=== PATIENT | male | born 1955 | race African-American/Black ===

== ENCOUNTER 2021-07-22 18:41 | Inpatient (IN) | payer OTHER ==
[2021-07-22] MEDS ORDERED: FOLIC ACID INJECTION - 1 MG, THIAMINE HCL 100 MG, MULTIVIT INJECTION ADULT 10 ML in SOD... IVPB ONE (19:52)
[2021-07-22 21:42] LABS: BASO % 0.7 % (0-2.0); EOS % 0.9 % (0-4.5); HEMATOCRIT 40.7 % (35.4-49); HEMOGLOBIN 13.2 GM/dL (11.7-16.9); LYMPH % 24.8 % (8-40); MCH 26.8 pg (25.7-33.7); MCHC 32.4 g/dl (32.0-35.9); MEAN CELL VOLUME 82.6 fl (80-96); MEAN PLT VOLUME 7.2 fl (7.5-11.1); MONO % 8.8 % (3.8-10.2); NEUT % 64.8 % (42.8-82.8); PLATELET COUNT 387 10^3/uL (134-434); RBC 4.93 M/mm3 (4.00-5.60); WHITE BLOOD COUNT 8.3 K/mm3 (4.0-10.0)
[2021-07-22] MEDS ORDERED: MAGNESIUM SULF 50% (8.12 MEQ/2 ML-1 GM VIAL) IVPB ONE (22:03)
[2021-07-22 22:04] LABS: ALBUMIN 3.2 g/dl (3.4-5.0); CALCIUM 9.2 mg/dL (8.5-10.1)
[2021-07-22 22:05] LABS: BLOOD UREA NITROGEN 6.5 mg/dL (7-18)
[2021-07-22 22:08] LABS: CREATININE 0.9 mg/dL (0.55-1.3)
[2021-07-22 22:09] LABS: TOT PROT 7.3 g/dl (6.4-8.2)
[2021-07-22 22:14] LABS: BILIRUBIN,TOTAL 0.3 mg/dL (0.2-1)
[2021-07-22] MEDS ORDERED: MAGNESIUM SULFATE IN WATER 2 GM/50 ML IVPB IVPB ONE (22:19)
[2021-07-22] MEDS ORDERED: POTASSIUM CHLORIDE TABS 20 MEQ TABLET.ER (FP) PO ONE ×2 (22:20→22:38)
[2021-07-22 22:49] LABS: MAGNESIUM 2.1 mg/dL (1.8-2.4)
[2021-07-22 22:53] LABS: PHOSPHOROUS 3.8 mg/dL (2.5-4.9)
[2021-07-22 23:00] LABS: PH,URINE 5.5 (5.0-8.0); URINE APPEARANCE CLEAR; URINE BILIRUBIN NEGATIVE (NEGATIVE); URINE COLOR YELLOW; URINE GLUCOSE (UA) NEGATIVE (NEGATIVE); URINE KETONE NEGATIVE (NEGATIVE); URINE LEUK ESTERASE NEGATIVE (NEGATIVE); URINE NITRITE NEGATIVE (NEGATIVE); URINE PROTEIN NEGATIVE (NEGATIVE); URINE UROBILINOGEN 0.2 mg/dL (0.2-1.0)
[2021-07-23] MEDS ORDERED: KCL 10 MEQ IVPB 10 MEQ/100 ML INFUS.BAG IVPB ONE ×2 (01:23→02:31)
[2021-07-23] MEDS: KCL 10 MEQ IVPB 10 MEQ/100 ML INFUS.BAG IVPB SCH ×2 (01:27→02:30)
[2021-07-23] MEDS ORDERED: HALOPERIDOL LACTATE 5 MG/ML IM ONE (03:18)
[2021-07-23] MEDS ORDERED: HALOPERIDOL LACTATE 5 MG/ML ONE (03:24)
[2021-07-23] MEDS ORDERED: amLODIPine BESYLATE 5 MG TABLET (FP) ONE (06:17)
[2021-07-23] MEDS ORDERED: HYDROCHLOROTHIAZIDE 25 MG TABLET (FP) ONE (06:17)
[2021-07-23] MEDS: amLODIPine BESYLATE 5 MG TABLET (FP) PO SCH (06:27)
[2021-07-23] MEDS: HYDROCHLOROTHIAZIDE 12.5 MG CAPSULE (FP) PO SCH (06:27)
[2021-07-23 09:17] VITALS: BMI 28.6
[2021-07-23] MEDS ORDERED: POTASSIUM CHLORIDE TABS 20 MEQ TABLET.ER (FP) PO ONE (10:00)
[2021-07-23] MEDS: ENOXAPARIN NA (PORCINE) 40 MG/0.4 ML DISP.SYRIN SQ SCH (11:26)
[2021-07-23] MEDS ORDERED: LORazepam 2 MG/ML SDV VIAL IVPUSH ONE (14:00)
[2021-07-23] MEDS: MINERAL OIL/PET HY-PHL TOPICAL OINTMENT 454 GM JAR TP SCH (15:34)
[2021-07-23] MEDS ORDERED: ATORVASTATIN CA 80 MG TABLET (FP) PO ONE (16:03)
[2021-07-23] MEDS: ASPIRIN 81 MG CHEWABLE TABLETS PO SCH (17:50)
[2021-07-23] MEDS: LISINOPRIL 10 MG TABLET PO SCH (22:05)
[2021-07-24] MEDS: MINERAL OIL/PET HY-PHL TOPICAL OINTMENT 454 GM JAR TP SCH ×3 (02:40→21:02)
[2021-07-24 07:43] LABS: BASO % 0.8 % (0-2.0); EOS % 1.5 % (0-4.5); HEMATOCRIT 39.6 % (35.4-49); HEMOGLOBIN 13.1 GM/dL (11.7-16.9); MCH 27.4 pg (25.7-33.7); MCHC 33.2 g/dl (32.0-35.9); MEAN CELL VOLUME 82.4 fl (80-96); MEAN PLT VOLUME 6.7 fl (7.5-11.1); MONO % 9.6 % (3.8-10.2); NEUT % 56.1 % (42.8-82.8); PLATELET COUNT 419 10^3/uL (134-434); WHITE BLOOD COUNT 7.6 K/mm3 (4.0-10.0)
[2021-07-24] MEDS: HYDROCHLOROTHIAZIDE 12.5 MG CAPSULE (FP) PO SCH (09:14)
[2021-07-24] MEDS: ASPIRIN 81 MG CHEWABLE TABLETS PO SCH (09:14)
[2021-07-24] MEDS: amLODIPine BESYLATE 5 MG TABLET (FP) PO SCH (09:14)
[2021-07-24 09:17] LABS: ALBUMIN 3.2 g/dl (3.4-5.0); BLOOD UREA NITROGEN 8.6 mg/dL (7-18)
[2021-07-24 09:18] LABS: CALCIUM 8.4 mg/dL (8.5-10.1); MAGNESIUM 2.2 mg/dL (1.8-2.4)
[2021-07-24 09:21] LABS: BILIRUBIN,TOTAL 0.9 mg/dL (0.2-1); TOT PROT 7.1 g/dl (6.4-8.2)
[2021-07-24 09:23] LABS: CREATININE 0.9 mg/dL (0.55-1.3)
[2021-07-24] MEDS: CYANOCOBALAMIN (VITAMIN B-12) 1000 MCG/1 ML VIAL IM SCH (10:41)
[2021-07-24] MEDS ORDERED: MELATONIN 5 MG TABLETS PO ONE (20:18)
[2021-07-24] MEDS: LISINOPRIL 10 MG TABLET PO SCH (21:02)
[2021-07-25] MEDS: amLODIPine BESYLATE 5 MG TABLET (FP) PO SCH ×2 (09:41→14:49)
[2021-07-25] MEDS: ENOXAPARIN NA (PORCINE) 40 MG/0.4 ML DISP.SYRIN SQ SCH (09:41)
[2021-07-25] MEDS: HYDROCHLOROTHIAZIDE 12.5 MG CAPSULE (FP) PO SCH (09:41)
[2021-07-25] MEDS: ASPIRIN 81 MG CHEWABLE TABLETS PO SCH ×2 (09:41→14:49)
[2021-07-25] MEDS: CYANOCOBALAMIN (VITAMIN B-12) 1000 MCG/1 ML VIAL IM SCH (09:42)
[2021-07-25] MEDS: TRIHEXYPHENIDYL HCL 2 MG TABLET PO SCH (09:43)
[2021-07-25] MEDS: MINERAL OIL/PET HY-PHL TOPICAL OINTMENT 454 GM JAR TP SCH ×2 (09:44→23:47)
[2021-07-25] MEDS: ATORVASTATIN CA 40 MG TABLET (FP) PO SCH (23:46)
[2021-07-25] MEDS: LISINOPRIL 20 MG TABLET PO SCH (23:46)
[2021-07-26 09:00] LABS: HEMATOCRIT 40.7 % (35.4-49); HEMOGLOBIN 13.5 GM/dL (11.7-16.9); MCH 27.3 pg (25.7-33.7); MCHC 33.2 g/dl (32.0-35.9); MEAN CELL VOLUME 82.2 fl (80-96); MEAN PLT VOLUME 6.9 fl (7.5-11.1); PLATELET COUNT 471 10^3/uL (134-434); RBC 4.95 M/mm3 (4.00-5.60); RDW 13.2 % (11.9-15.9); WHITE BLOOD COUNT 6.1 K/mm3 (4.0-10.0)
[2021-07-26 10:07] LABS: CALCIUM 9.2 mg/dL (8.5-10.1)
[2021-07-26 10:08] LABS: BLOOD UREA NITROGEN 10.5 mg/dL (7-18)
[2021-07-26 10:11] LABS: CREATININE 0.9 mg/dL (0.55-1.3)
[2021-07-26] MEDS: MINERAL OIL/PET HY-PHL TOPICAL OINTMENT 454 GM JAR TP SCH ×2 (12:44→22:33)
[2021-07-26] MEDS: ENOXAPARIN NA (PORCINE) 40 MG/0.4 ML DISP.SYRIN SQ SCH (12:44)
[2021-07-26] MEDS: ASPIRIN 81 MG CHEWABLE TABLETS PO SCH (12:45)
[2021-07-26] MEDS: TRIHEXYPHENIDYL HCL 2 MG TABLET PO SCH (12:45)
[2021-07-26] MEDS: CYANOCOBALAMIN (VITAMIN B-12) 1000 MCG/1 ML VIAL IM SCH (12:46)
[2021-07-26] MEDS: amLODIPine BESYLATE 5 MG TABLET (FP) PO SCH (12:46)
[2021-07-26] MEDS: ATORVASTATIN CA 40 MG TABLET (FP) PO SCH (22:32)
[2021-07-26] MEDS: LISINOPRIL 20 MG TABLET PO SCH (22:33)
[2021-07-27 09:24] LABS: HEMATOCRIT 45.8 % (35.4-49); HEMOGLOBIN 15.1 GM/dL (11.7-16.9); MCH 27.5 pg (25.7-33.7); MEAN CELL VOLUME 83.2 fl (80-96); MEAN PLT VOLUME 6.9 fl (7.5-11.1); PLATELET COUNT 440 10^3/uL (134-434); RDW 13.3 % (11.9-15.9); WHITE BLOOD COUNT 5.6 K/mm3 (4.0-10.0)
[2021-07-27 09:33] LABS: BASO % 1.1 % (0-2.0); EOS % 1.4 % (0-4.5); LYMPH % 43.2 % (8-40); MONO % 11.6 % (3.8-10.2); NEUT % 42.7 % (42.8-82.8)
[2021-07-27] MEDS: MINERAL OIL/PET HY-PHL TOPICAL OINTMENT 454 GM JAR TP SCH ×2 (09:54→22:45)
[2021-07-27] MEDS: TRIHEXYPHENIDYL HCL 2 MG TABLET PO SCH (09:54)
[2021-07-27] MEDS: ENOXAPARIN NA (PORCINE) 40 MG/0.4 ML DISP.SYRIN SQ SCH (09:55)
[2021-07-27] MEDS: ASPIRIN 81 MG CHEWABLE TABLETS PO SCH (09:55)
[2021-07-27] MEDS: CYANOCOBALAMIN (VITAMIN B-12) 1000 MCG/1 ML VIAL IM SCH (09:55)
[2021-07-27] MEDS: amLODIPine BESYLATE 5 MG TABLET (FP) PO SCH (09:55)
[2021-07-27] MEDS: ATORVASTATIN CA 40 MG TABLET (FP) PO SCH (22:45)
[2021-07-27] MEDS: LISINOPRIL 20 MG TABLET PO SCH (22:53)
[2021-07-28] MEDS ORDERED: MELATONIN 5 MG TABLETS PO PRN (03:04)
[2021-07-28 08:54] LABS: EOS % 3.3 % (0-4.5); HEMATOCRIT 41.2 % (35.4-49); HEMOGLOBIN 13.5 GM/dL (11.7-16.9); LYMPH % 44.1 % (8-40); MCH 27.1 pg (25.7-33.7); MCHC 32.8 g/dl (32.0-35.9); MEAN CELL VOLUME 82.7 fl (80-96); MEAN PLT VOLUME 6.7 fl (7.5-11.1); MONO % 10.5 % (3.8-10.2); NEUT % 41.1 % (42.8-82.8); PLATELET COUNT 446 10^3/uL (134-434); RBC 4.98 M/mm3 (4.00-5.60); RDW 13.3 % (11.9-15.9); WHITE BLOOD COUNT 4.4 K/mm3 (4.0-10.0)
[2021-07-28 09:14] LABS: BLOOD UREA NITROGEN 11.2 mg/dL (7-18)
[2021-07-28 09:17] LABS: CREATININE 0.8 mg/dL (0.55-1.3)
[2021-07-28] MEDS: CYANOCOBALAMIN (VITAMIN B-12) 1000 MCG/1 ML VIAL IM SCH (10:38)
[2021-07-28] MEDS: ENOXAPARIN NA (PORCINE) 40 MG/0.4 ML DISP.SYRIN SQ SCH (10:38)
[2021-07-28] MEDS: TRIHEXYPHENIDYL HCL 2 MG TABLET PO SCH (10:38)
[2021-07-28] MEDS: ASPIRIN 81 MG CHEWABLE TABLETS PO SCH (10:38)
[2021-07-28] MEDS: amLODIPine BESYLATE 5 MG TABLET (FP) PO SCH (10:38)
[2021-07-28] MEDS: MINERAL OIL/PET HY-PHL TOPICAL OINTMENT 454 GM JAR TP SCH ×2 (10:40→21:47)
[2021-07-28] MEDS ORDERED: MINERAL OIL ENEMA 133 ML ENEMA PR ONE (15:56)
[2021-07-28] MEDS: POLYETHYLENE GLYCOL (HEALTHYLAX) 3350 17 GM PACKET PO SCH ×2 (16:06→21:47)
[2021-07-28] MEDS: DOCUSATE SODIUM 100 MG CAPSULE (FP) PO SCH ×2 (16:06→21:47)
[2021-07-28] MEDS: ATORVASTATIN CA 40 MG TABLET (FP) PO SCH (21:47)
[2021-07-28] MEDS: SENNOSIDES 8.6MG TABLET (FP) PO SCH (21:47)
[2021-07-28] MEDS: LISINOPRIL 20 MG TABLET PO SCH (21:48)
[2021-07-29] MEDS: DOCUSATE SODIUM 100 MG CAPSULE (FP) PO SCH ×3 (06:23→21:48)
[2021-07-29] MEDS: POLYETHYLENE GLYCOL (HEALTHYLAX) 3350 17 GM PACKET PO SCH ×2 (09:30→21:48)
[2021-07-29] MEDS: MINERAL OIL/PET HY-PHL TOPICAL OINTMENT 454 GM JAR TP SCH ×2 (09:30→21:56)
[2021-07-29] MEDS: ENOXAPARIN NA (PORCINE) 40 MG/0.4 ML DISP.SYRIN SQ SCH (09:30)
[2021-07-29] MEDS: TRIHEXYPHENIDYL HCL 2 MG TABLET PO SCH (09:30)
[2021-07-29] MEDS: CYANOCOBALAMIN (VITAMIN B-12) 1000 MCG/1 ML VIAL IM SCH (09:30)
[2021-07-29] MEDS: ASPIRIN 81 MG CHEWABLE TABLETS PO SCH (09:31)
[2021-07-29] MEDS: amLODIPine BESYLATE 5 MG TABLET (FP) PO SCH (09:31)
[2021-07-29] MEDS: SENNOSIDES 8.6MG TABLET (FP) PO SCH ×2 (09:31→21:48)
[2021-07-29 11:10] LABS: METHYLMALONIC ACID- 134 nmol/L (0-378)
[2021-07-29] MEDS ORDERED: ACETAMINOPHEN 325 MG TABLET (FP) PO PRN (12:26)
[2021-07-29] MEDS ORDERED: MINERAL OIL ENEMA 133 ML ENEMA RC ONE (12:58)
[2021-07-29] MEDS: ATORVASTATIN CA 40 MG TABLET (FP) PO SCH (21:48)
[2021-07-29] MEDS: LISINOPRIL 20 MG TABLET PO SCH (21:52)
[2021-07-30] MEDS: DOCUSATE SODIUM 100 MG CAPSULE (FP) PO SCH (06:12)
[2021-07-30] MEDS: MINERAL OIL/PET HY-PHL TOPICAL OINTMENT 454 GM JAR TP SCH (09:05)
[2021-07-30] MEDS: POLYETHYLENE GLYCOL (HEALTHYLAX) 3350 17 GM PACKET PO SCH (09:08)
[2021-07-30] MEDS: ENOXAPARIN NA (PORCINE) 40 MG/0.4 ML DISP.SYRIN SQ SCH (09:08)
[2021-07-30] MEDS: ASPIRIN 81 MG CHEWABLE TABLETS PO SCH (09:08)
[2021-07-30] MEDS: TRIHEXYPHENIDYL HCL 2 MG TABLET PO SCH (09:08)
[2021-07-30] MEDS: CYANOCOBALAMIN (VITAMIN B-12) 1000 MCG/1 ML VIAL IM SCH (09:09)
[2021-07-30] MEDS: amLODIPine BESYLATE 5 MG TABLET (FP) PO SCH (09:09)
[2021-07-30] MEDS: SENNOSIDES 8.6MG TABLET (FP) PO SCH (09:09)
[2021-07-30 15:34] VITALS: BP 122/50; PULSE 55; TEMP 97
== END 2021-07-30 13:54 | disposition home or self-care (01) | DRG 42 ==
LOC: JER 18:41 → JERBED 20:11 → J8W 07-23 08:42 → J4W 07-23 17:23 → J4S 07-25 01:08 → J7W 07-25 18:24
PROVIDERS: ADMIT Internal Medicine; ATTEND Internal Medicine
DX: G25.9 Extrapyramidal and movement disorder, unspecified (principal); F20.9 Schizophrenia, unspecified; F31.9 Bipolar disorder, unspecified; J44.9 Chronic obstructive pulmonary disease, unspecified; M16.11 Unilateral primary osteoarthritis, right hip; I10 Essential (primary) hypertension; E87.6 Hypokalemia; F39 Unspecified mood [affective] disorder; E78.5 Hyperlipidemia, unspecified; T43.4X5A Adverse effect of butyrophenone and thiothixene neuroleptics, initial encounter
CPT/HCPCS: 36415; 70450-TC; 70551-TC; 71045-TC-FY; 80048; 80053; 81003; 82607; 82746; 82962; 83735; 83921; 84100; 84439; 84443; 85025; 85027; 86780; 93005; 93010; 93306-TC; 93880-TC; 97116-GP; 99285-25; C9803-CS; U0003; U0005